=== PATIENT | male | born 1960 | race Caucasian/White ===

== ENCOUNTER 2018-09-14 09:25 | Inpatient (IN) ==
--- NOTE | 2018-08-22 09:59 | Anesthesiology Consultation ---
Date of Service August 22, 2018 Assessment & Plan (1) Encounter for pre-operative examination: Plan: Patient currently at [facility]. Limited information available per surgeon/RN interview. Discussed with [facility] Lloyd RN-- limited information; due not have height listed for patient (but also, do not note history of obesity or morbid obesity). Will need to review height, PMHX, PSHX AM DOS. Also, ASA/plavix indictions per [facility] Lloyd 2/2 carotid artery stenosis. Will need to review above details/clinical status AM DOS to determine if acceptable for surgery. Chart Review Chart Review: Acceptable Risk for Surgery and Patient NOT seen in Pre Admission Testing Consults Requested none ASA ASA4 Proposed Anesthesia Anesthesia Type: General Anesthesia Line Insertion: Arterial line Risk / Benefits Reviewed With: PT / POA / Parent / Guardian, Accepts Plan and Informed Consent Obtained NPO Date Last Intake of Fluids: 09/14/18 Time Last Intake of Fluids: 07:30 Date Last Intake of Solids: 09/13/18 Time Last Intake of Solids: 17:00 History Surgery Operation Date: 09/14/18 10:50 Proposed Procedures p Left Carotid Endarterectomy - David Mcleod MD Height/Weight Height: 5 ft 7 in Weight: 82.554 kg Allergies Allergy/AdvReac Type Severity Reaction Status Date / Time No Known Allergies Allergy Verified 09/14/18 09:46 Medications Home Medications Medication Instructions Recorded Confirmed Last Taken amlodipine 10 mg PO DAILY 08/22/18 09/14/18 09/14/18 07:15 aspirin 81 mg PO DAILY 08/22/18 09/14/18 09/13/18 08:00 atorvastatin 80 mg PO DAILY 08/22/18 09/14/18 09/13/18 08:00 clopidogrel [Plavix] 75 mg PO DAILY 08/22/18 09/14/18 09/10/18 08:00 lisinopril 5 mg PO DAILY 08/22/18 09/14/18 09/14/18 07:15 paroxetine HCl 40 mg PO DAILY 08/22/18 09/14/18 09/13/18 08:00 Past Medical History Medical History CVA (cerebral vascular accident) (Acute) Carotid artery stenosis Chronic obstructive pulmonary disease Dysthymic disorder Hyperlipidemia Hypertension Occlusion and stenosis of left carotid artery Past Surgical History Surgical History History of subluxation of joint TMJ Past Anesthesia History No Hx of Anesthesia Complications and No Family Hx of Anesthesia Complications History of PONV No Motion Sickness Screening History of Motion Sickness: No Social History Smoking Status: Current every day smoker Smoking cigarettes per day: 1 ppd x 45 yrs Do You Dip or Chew Tobacco: No Exercise / Class Metabolic Activity III < 4 Walking/Shop/Light housework Physical Exam Vital Signs Last Vital Signs Temp 37.1 C 09/14/18 09:49 Pulse 58 L 09/14/18 09:49 Resp 18 09/14/18 09:49 BP 116/73 09/14/18 09:49 Pulse Ox 96 09/14/18 09:49 Constitutional + cachectic ENMT Mouth: + edentulous Thyromental Distance: > or= 3.5 Finger Breadths Mallampati Class: II Neck normal visual inspection and trachea midline; neck extension not limited Respiratory normal respiratory effort and + uses accessory muscles Auscultation: + diminished lung sounds and + rhonchi Cardiovascular Rate/Rhythm: regular rate and regular rhythm Heart Sounds: no murmur Vessels: no carotid bruit Musculoskeletal Spine: normal cervical ROM Neurologic moves all extremities Motor/Sensory: no sensory deficit Psychiatric Orientation: alert and oriented x 3 Testing Electrocardiogram Date: 01/21/18 Findings: + SB @ (59) Chest X-Ray Date: 01/25/18 Findings: + NAD Old right rib fractures Stress Test Date: 08/18/18 Type: exercise Normal exercise ECHO without evidence of inducible ischemia at 91% mPHR. 7.00 METS. EF 60-65%. No significant valvular disease. Laboratory Results 08/04/18 WBC 11.45 (surgeon aware) H/H 14.7/43.1 PLATELETS 327 SODIUM 143 POTASSIUM 4.3 CHLORIDE 101 CO2 31 BUN 11 CREATININE 0.76 GLUCOSE 124
--- NOTE | 2018-09-14 06:25 | History & Physical Report ---
Date of Service September 14, 2018 Assessment & Plan (1) Stenosis of left internal carotid artery: Patient admitted for a left cea. I have discussed the risks options and benefits of the procedure with the patient. The patient understands the risks options and benefits and agrees to the procedure. History of Present Illness Chief Complaint: Left internal carotid artery stenosis Primary Care Provider: Casey Howe Mr. Garrett Chan is a very pleasant 57-year-old male, who is currently incarcerated at [facility], who in November of lastyear suffered from a cerebellar stroke. The patient states he awoke from sleep with dizziness and nausea, he was unable to stand and passed on the floor. When he finally came to, he had significant issues with his equilibrium as well as word finding abilities. 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 He was sent to our clinic today for evaluation of his high-grade left internal carotid artery stenosis. On discussion with the patient, he states that his symptoms have almost totally resolved with regard to his stroke. He denies any repeat stroke-like symptoms. On review of his CTA performed back in November of this year, he has approximately 90% left internal carotid artery stenosis as well as approximately 50% stenosis of his right carotid artery. The patient does note occasional episodes of blurry vision when his blood pressure is high. Allergies Allergy/AdvReac Type Severity Reaction Status Date / Time No Known Allergies Allergy Verified 08/22/18 08:41 Home Medications Home Medications Medication Instructions Recorded Confirmed Type amlodipine 10 mg PO DAILY 08/22/18 08/22/18 History aspirin 81 mg PO DAILY 08/22/18 08/22/18 History atorvastatin 80 mg PO DAILY 08/22/18 08/22/18 History clopidogrel [Plavix] 75 mg PO DAILY 08/22/18 08/22/18 History lisinopril 5 mg PO DAILY 08/22/18 08/22/18 History paroxetine HCl 40 mg PO DAILY 08/22/18 08/22/18 History Past Med/Surg History Medical History Carotid artery stenosis Chronic obstructive pulmonary disease Dysthymic disorder Hyperlipidemia Hypertension Occlusion and stenosis of left carotid artery Surgical History History of subluxation of joint TMJ Social History Current Living Situation Comment: [facility] Smoking Status: Unknown if ever smoked Review of Systems All systems reviewed & are unremarkable except as noted in HPI & below Physical Exam Physical Exam: In general, the patient is a well-developed and well-nourished male, in no acute distress, sitting comfortably on examination table. Head is normocephalic and atraumatic. Mucous membranes are moist. Neck is supple and trachea is midline. Pupils are equal and round. No carotid bruit is appreciated on auscultation bilaterally. Heart rate is regular with a regular rhythm. Lungs are clear to auscultation bilaterally. Abdomen is soft, nontender, nondistended. Radial and femoral pulses are 2+ bilaterally. There is spontaneous movement of all 4 extremities. Gross motor and sensation are intact. The patient is alert and oriented x3.
[~2018-09-14 09:25] MED LIST: CEFAZOLIN 2000MG 2,000 MG/15 ML SYR IV SCH; LACTATED RINGER'S 1,000 ML IV SCH
[2018-09-14] MEDS ORDERED: GLYCOPYRROLATE 0.2 MG/ML VIAL ONE (10:07)
[2018-09-14] MEDS ORDERED: ONDANSETRON INJ 2 MG/ML 2 ML VIAL ONE (10:07)
[2018-09-14] MEDS ORDERED: LIDOCAINE HCL 2% 2 ML VIAL/AMP(20MG/ML) INFIL ONE ×2 (10:07→15:17)
[2018-09-14] MEDS ORDERED: PROPOFOL IV EMULSION 10 MG/ML 20 ML VIAL IV ONE ×2 (10:07→15:06)
[2018-09-14] MEDS ORDERED: fentaNYL citrate 100 MCG/2 ML VIAL ONE ×2 (10:07→14:57)
[2018-09-14] MEDS ORDERED: MIDAZOLAM HCL 1 MG/ML 2ML VIAL ONE (10:07)
[2018-09-14] MEDS ORDERED: NEOSTIGMINE METHYLSULFATE 5 MG/5 ML SYR ONE (10:07)
[2018-09-14] MEDS ORDERED: DEXAMETHASONE SOD INJ 4 MG/ML VIAL ONE (10:07)
[2018-09-14] MEDS ORDERED: HEPARIN SOD (PORCINE) 1000 UNIT/ML 10 ML VIAL ONE (11:01)
[2018-09-14] MEDS ORDERED: LABETALOL HCL IV 5 MG/ML 20ML IV ONE ×2 (11:01→13:00)
[2018-09-14] MEDS ORDERED: HEPARIN (PORCINE) 1000 UNIT/ML 10 ML (CATH LAB USE ONLY) ONE (11:53)
[2018-09-14] MEDS ORDERED: THROMBIN FOR SOLN 20000 UNIT KIT ONE (11:53)
[2018-09-14] MEDS ORDERED: LIDOCAINE HCL 1% 20 ML VIAL ONE (11:53)
[2018-09-14] MEDS ORDERED: CEFAZOLIN 250 MG/ML 1 GM VIAL ONE (11:53)
[2018-09-14] MEDS ORDERED: GELATIN SPONGE SZ 100 ONE (11:53)
[2018-09-14] MEDS ORDERED: BUPIVACAINE/EPINEPHRINE 0.5% MPF 1:200,000 30 ML VIAL ONE (11:53)
--- NOTE | 2018-09-14 12:12 | History & Physical Bridge Note ---
Date of Service September 14, 2018 History & Physical Bridge Note I have examined the patient, reviewed the History & Physical and in the interval since the performance of the History & Physical I have noted the following changes of clinical significance: no changes noted
[2018-09-14] MEDS ORDERED: ROCURONIUM BROMIDE 10 MG/ML 5 ML VIAL ONE (13:00)
[2018-09-14] MEDS ORDERED: PHENYLEPHRINE HCL 10 MG/ML VIAL ONE (13:01)
[2018-09-14] MEDS ORDERED: ePHEDrine sulfate 50 MG/ML SYR ONE (13:01)
--- NOTE | 2018-09-14 14:39 | Post Operative Brief Note ---
Immediate Post Op Note v1 Date of Surgery September 14, 2018 Pre & Post Diagnosis Operation Date: 09/14/18 10:50 Pre-Op Diagnosis: Left Internal Carotid Artery Stenosis Post-Op Diagnosis: Left Internal Carotid Artery Stenosis Procedure Operation Date: 09/14/18 10:50 Actual Procedures p Left Carotid Endarterectomy with patch(Left) - David Mcleod MD Surgeon David Mcleod MD Normalizer MD Jas Mccracken MD Estimated Blood Loss 50 Findings Consistent with Post-Op Diagnosis Anesthesia Type General Complications none Disposition Accompanied Patient To Recovery: No Disposition: Recovery Room
[2018-09-14] MEDS ORDERED: MoRPHine SULFATE 4 MG/ML 1 ML CARP\\VIAL IV PRN (14:40)
[2018-09-14] MEDS ORDERED: OXYCODONE/ACETAMINOPHEN 5mg/325mg TAB PO PRN (14:40)
--- NOTE | 2018-09-14 15:10 | Operative Report ---
Post Operative Report Pre & Post Diagnosis Operation Date: 09/14/18 10:50 Pre-Op Diagnosis: Left Internal Carotid Artery Stenosis Post-Op Diagnosis: Left Internal Carotid Artery Stenosis Procedure Operation Date: 09/14/18 10:50 Actual Procedures p Left Carotid Endarterectomy(Left) - David Mcleod MD Surgeon Dr. Harsha Campo MD [employer] Instructor MD Jas Mccracken MD Estimated Blood Loss 50 Findings Consistent with Post-Op Diagnosis Specimens Left carotid artery plaque Anesthesia Type General Complications none Disposition Accompanied Patient To Recovery: Yes Disposition: Recovery Room Indications Severe left carotid artery stenosis Description of Procedure The patient was brought to the operating room, where an arterial line was placed and general anesthesia was secured. The patient was identified and a timeout performed. The left neck was prepped and sterilely draped. An oblique incision was made along the anterior border of the right sternocleidomastoid muscle. The platysma was divided and dissection was carried down to the carotid sheath. The facial vein was doubly ligated and divided exposing the carotid bifurcation. There was a small amount of bleeding from the medial branch of the facial that was suture ligated with 3-0 silk suture. The vagus nerve and XII nerve were identified and kept free from dissection and retraction. The internal, external, and common carotid arteries were dissected free proximally and distally. The hypoglossal nerve was identified. The ansa cervicalis was identified dissected and ligated to allow for medial rotation of the hypoglossal nerve without any tension. A total of 7000 U of Heparin was given intravenously. The external carotid as well as superior thyroid vessels were encircled with vessel loops a nd add to silk tie. Once the heparin was allowed to circulate for approximately 5 minutes, clamps were placed starting with the internal carotid and common carotid and external carotid. An anterior arteriotomy was made on the common carotid artery using an 11 blade. Juarez scissors was used to extend the arteriotomy through the plaque on to the distal soft internal carotid artery. The plaque was heavily calcified, ulcerated, and nearly occlusive. The common carotid artery had significant disease and the webbing in the movement of it and the arteriotomy was extended distally to include a good portion of the common carotid until a segment free of plaque was noted at the proximal end of the common carotid. A shunt was then inserted into the into the internal carotid artery and revealed good backbleeding. The proximal end of the shunt was then inserted into the common carotid artery and secured in place. The Doppler attached to the shunt was turned on and revealed good flow through the shunt. We had some difficulty securing the shunt in place however we were able to successfully place it proceed with the case. A Pickford elevator was used to create an endarterectomy plane. The proximal endpoint was created using Juarez scissors as well as a distal endpoint was created with the Juarez scissors. The plaque was freed out of the external carotid artery.With downward retraction on the plaque, a smooth distal endpoint was created. All debris was meticulously debrided from the inside of the lumen and confirmed with instillation of heparinized saline. Once endarterectomy was completed, an Aquacel patch was then cut to the appropriate size and sewn into internal carotid artery using a PTFE 6-0 sutures starting at the internal carotid artery corner of the arteriotomy. Before the patch was completed, the shunt was pulled and all the arteries were backbleed extruding any air and debris. The patch was then completed. The external carotid and superior thyroid loops was removed first, followed by the common carotid artery clamp, and finally the internal carotid artery clamp, restoring blood flow to the brain. Patient did have some oozing and multiple 6-0 Prolene sutures were used to achieve hemostasis as well as thrombin soaked gel foam. Meticulous hemostasis was secured. The wound was then closed in multiple layers using 3-0 Vicryl suture then a 4-0 Vicryl subcutaneous layer closing the skin. Dermabond was applied over the incision. The patient tolerated the procedure well and was extubated on table. The patient was moving all four extremities and his tongue was midline to command prior to and upon transfer to the recovery room. Dr. Mcleod was scrubbed and present for the entirety of the case. I attest to the content of the Intraoperative Record and any orders documented therein. Any exceptions are noted below.
[2018-09-14] MEDS ORDERED: fentaNYL citrate 100 MCG/2 ML VIAL IV PRN (16:06)
[2018-09-14] MEDS ORDERED: ATROPINE SULFATE 0.1 MG/ML 10ML SYR IV PRN (16:06)
[2018-09-14] MEDS ORDERED: FLUMAZENIL 0.1 MG/1 ML 10 ML VIAL IV PRN (16:06)
[2018-09-14] MEDS ORDERED: NALOXONE HCL 0.4 MG/1 ML VIAL/CARP IV PRN (16:06)
[2018-09-14] MEDS ORDERED: ePHEDrine sulfate 50 MG/ML AMP IV PRN (16:06)
[2018-09-14] MEDS ORDERED: LABETALOL HCL IV 5 MG/ML 20ML IV PRN (16:06)
[2018-09-14] MEDS ORDERED: ONDANSETRON INJ 2 MG/ML 2 ML VIAL IV PRN (16:06)
[2018-09-14] MEDS ORDERED: PROMETHAZINE HCL 12.5 MG in SODIUM CHLORIDE 0.9% 50 ML IV PRN (16:06)
--- NOTE | 2018-09-14 16:38 | Anesthesiology Progress Note ---
Date of Service September 14, 2018 Anesthesia Post Procedure Vital Signs Vital Signs: Temp Pulse Pulse Resp BP BP BP 09/14/18 16:30 59 L 14 115/48 L 101/57 L 09/14/18 16:20 36.6 C 61 14 105/45 L 95/55 L 09/14/18 16:10 50 L 14 112/48 L 96/57 L 09/14/18 16:00 60 16 101/45 L 88/53 L 09/14/18 15:50 61 16 104/47 L 95/57 L 09/14/18 15:40 48 L 16 105/49 L 95/54 L 09/14/18 15:32 36.2 C L 60 16 114/55 L 91/64 L 09/14/18 09:49 37.1 C 58 L 18 125/74 116/73 Pulse Ox 09/14/18 16:30 96 09/14/18 16:20 96 09/14/18 16:10 94 09/14/18 16:00 96 09/14/18 15:50 98 09/14/18 15:40 98 09/14/18 15:32 98 09/14/18 09:49 96 Notes Mental Status: alert / awake / arousable Patient Amnestic to Procedure: Yes Nausea / Vomiting: adequately controlled Pain: adequately controlled Airway Patency, RR, SpO2: stable & adequate BP & HR: stable & adequate Hydration State: stable & adequate Anesthetic Complications: no major complications apparent
[2018-09-14] MEDS: OXYCODONE/ACETAMINOPHEN 5mg/325mg TAB PO PRN ×2 (17:36→21:25)
[2018-09-14] MEDS: D5W AND 1/2NSS 1,000 ML IV SCH (17:54)
--- NOTE | 2018-09-14 18:11 | Critical Care Consultation ---
Date of Consultation September 14, 2018 Assessment & Plan (1) Stenosis of left internal carotid artery: Reason Critically Ill: 57-year-old male with history of left internal carotid stenosis, now status post left carotid endarterectomy. Neuro CAM ICU: Negative Cardiac Carotid stenosisstatus post endarterectomy -Continue aspirin Lipitor Plavix -Arterial line for strict blood pressure control, SBP less than 160 -Continue amlodipine, lisinopril Respiratory COPDno recorded home meds -Currently on 4 L nasal cannula, wean as tolerated -Monitor for need for nebs RENAL/LYTES Monitor routine BMPs No Palma, monitor for urine output ENDO Follow ICU insulin protocol HEME H&H stable, monitor routine CBCs ID Postoperative cefazolin x2 doses LINES/IV ACCESS Peripheral IV, a line DVT PROPHYLAXIS SCDs, anticoagulation contraindicated for now Supervising Physician Co-Signing Physician Notes I have personally evaluated and examined this patient. I agree with assessment and plan of Yao AGUILAR. Left-sided carotid endarterectomy, anticipate routine postoperative course History of Present Illness Attending Physician: David Mcleod MD History of Present Illness Mr. Chan is a 57-year-old male from [facility] with past medical history of hypertension, COPD, hyperlipidemia, CVA, left internal carotid stenosis who presents to the ICU status post day of surgery for left endarterectomy. Upon arrival to the ICU the patient is alert and oriented, and he denies pain, shortness of breath, nausea and vomiting, confusion, or changes in vision. He is currently upright in bed eating dinner. Surgical site incision is approximated with minimal swelling. Plan to remain in ICU overnight for close observation and monitoring. Allergies Allergy/AdvReac Type Severity Reaction Status Date / Time No Known Allergies Allergy Verified 09/14/18 09:46 Home Medications Home Medications Medication Instructions Recorded Confirmed Type amlodipine 10 mg PO DAILY 08/22/18 09/14/18 History aspirin 81 mg PO DAILY 08/22/18 09/14/18 History atorvastatin 80 mg PO DAILY 08/22/18 09/14/18 History clopidogrel [Plavix] 75 mg PO DAILY 08/22/18 09/14/18 History lisinopril 5 mg PO DAILY 08/22/18 09/14/18 History paroxetine HCl 40 mg PO DAILY 08/22/18 09/14/18 History Patient History Medical History CVA (cerebral vascular accident) (Acute) Carotid artery stenosis Chronic obstructive pulmonary disease Dysthymic disorder Hyperlipidemia Hypertension Occlusion and stenosis of left carotid artery Surgical History History of subluxation of joint TMJ Social History Current Living Situation Comment: [facility] Smoking Status: Current every day smoker Review of Systems Review of 12 systems negative except for HPI. See above Physical Exam Vital Signs (Past 24 Hours): Last Vital Signs Temp 36.6 C 09/14/18 16:20 Pulse 73 09/14/18 17:26 Resp 15 09/14/18 17:26 BP 101/57 L 09/14/18 16:30 Pulse Ox 94 09/14/18 17:26 Constitutional: WD/WN, vitals as above well nourished and comfortable Eyes: PERRLA, no visual changes Neck: Surgical incision to left anterior neck with minimal swelling, no drainage, incision approximated. Trachea midline Respiratory: Respirations unlabored on 4 L nasal cannula, lungs clear to auscultation bilaterally in all lobes, no wheezing, symmetrical chest wall movement Cardiovascular: S1-S2 auscultated, good peripheral perfusion, pedal pulses and radial pulses +2 bilaterally Gastrointestinal (Abdomen): Abdomen soft flat and nontender, bowel sounds auscultated in all 4 quadrants Skin: Skin intact Neurologic: Alert and oriented, symmetrical movements, no facial droop, no visual changes, no changes in mentation Psychiatric: Orientation: oriented x 3 and cooperative Results & Data Medications Administered Home Medications amlodipine 10 mg PO DAILY 08/22/18 [History Confirmed 09/14/18] aspirin 81 mg PO DAILY 08/22/18 [History Confirmed 09/14/18] atorvastatin 80 mg PO DAILY 08/22/18 [History Confirmed 09/14/18] clopidogrel [Plavix] 75 mg PO DAILY 08/22/18 [History Confirmed 09/14/18] lisinopril 5 mg PO DAILY 08/22/18 [History Confirmed 09/14/18] paroxetine HCl 40 mg PO DAILY 08/22/18 [History Confirmed 09/14/18] Active Medications Amlodipine Besylate (Norvasc) 10 mg PO DAILY [facility]AIL[facility] Stop: 10/15/18 08:59 Aspirin (Ecotrin Ectab) 81 mg PO DAILY [facility] Stop: 10/15/18 08:59 Atorvastatin Calcium (Lipitor) 80 mg PO DAILY [facility] Stop: 10/15/18 08:59 Clopidogrel Bisulfate (Plavix) 75 mg PO DAILY [facility] Stop: 10/15/18 08:59 Cefazolin Sodium (Ancef 1000mg) 1,000 mg in 7.5 mls @ 2.5 mls/min IV Q8H [facility]; Protocol Stop: 09/15/18 07:02 Dextrose/Sodium Chloride (D5w And 1/2nss) 1,000 mls @ 125 mls/hr IV .Q8H [facility] Stop: 10/14/18 16:59 Last Admin: 09/14/18 17:54 Dose: 125 mls/hr Documented by: Lisinopril (Zestril) 5 mg PO DAILY [facility] Stop: 10/15/18 08:59 Morphine Sulfate (Morphine Sulfate) 1 - 4 mg IV Q2H PRN PRN Reason: Severe Pain Stop: 09/28/18 14:39 Oxycodone/Acetaminophen (Percocet 5mg/325mg) 1 - 2 tab PO Q4H PRN PRN Reason: Moderate Pain Stop: 09/28/18 14:52 Last Admin: 09/14/18 17:36 Dose: 2 tab Documented by: Paroxetine HCl (Paxil) 40 mg PO DAILY [facility] Stop: 10/15/18 08:59
[2018-09-14] MEDS ORDERED: PNEUMOCOCCAL ADMINISTRATION CHARGE ONE (21:15)
[2018-09-14] MEDS ORDERED: PNEUMOCOCCAL POLYSACCHARIDES 25 MCG/0.5 ML VIAL/SYR IM ONE (21:15)
[2018-09-14] MEDS: CEFAZOLIN 1000MG 1,000 MG/7.5 ML SYR IV SCH (22:38)
[2018-09-15] MEDS: D5W AND 1/2NSS 1,000 ML IV SCH ×2 (02:30→13:16)
[2018-09-15 04:52] LABS: Basophils # (auto) 0.01 K/uL (0-0.2); Basophils % (auto) 0.1 %; Hemoglobin 11.2 g/dL (14.0-18.0); Immature Granulocytes # (auto) 0.04 K/uL (0.00-0.02); Immature Granulocytes % (auto) 0.3 %; Lymphocytes # (auto) 1.48 K/uL (1.2-3.4); Lymphocytes % (auto) 9.8 %; Mean Corpuscular Hgb Conc 33.9 g/dL (32-36); Mean Corpuscular Volume 95.4 fL (80-100); Mean Platelet Volume 9.6 fL (7.4-10.4); Monocytes # (auto) 0.73 K/uL (0.11-0.59); Monocytes % (auto) 4.8 %; Neutrophils # (auto) 12.87 K/uL (1.4-6.5); Platelet Count 225 K/uL (130-400); RDW Coefficient of Variation 13.5 % (11.5-14.5); Red Blood Count 3.46 M/uL (4.7-6.1); White Blood Count 15.13 K/uL (4.8-10.8)
[2018-09-15 05:10] LABS: Calcium 7.6 mg/dl (8.5-10.1); Creatinine Clr Calc Pharmacy 101.7 ml/min; Est GFR (African American) 117.8; Est GFR (Non-African American) 101.7; Phosphorus 3.3 mg/dl (2.5-4.9); Potassium 3.9 mmol/L (3.5-5.1)
[2018-09-15] MEDS: CEFAZOLIN 1000MG 1,000 MG/7.5 ML SYR IV SCH (06:16)
--- NOTE | 2018-09-15 07:50 | Surgery Progress Note ---
Date of Service September 15, 2018 Assessment & Plan (1) Stenosis of left internal carotid artery: This patient is postoperative day 1 from a left carotid endarterectomy. We will transfer him to the floor and observe him for 1 more day due to his throat soreness and headache. Subjective Patient is complaining of some soreness when swallowing. He denies inability to swallow. He denies any neurological focal deficits. He is also complaining of a left-sided headache. Physical Exam Vital Signs (Past 24 Hours): Last Vital Signs Temp 36.7 C 09/15/18 04:00 Pulse 60 09/15/18 05:00 Resp 20 09/15/18 05:00 BP 96/52 L 09/15/18 05:00 Pulse Ox 93 09/15/18 05:00 Patient is awake and alert. He has no neurological focal deficits. Minimal swelling is noted in the incision site. Incision site is dry and clean.
--- NOTE | 2018-09-15 08:01 | Critical Care Progress Note ---
Date of Service September 15, 2018 Assessment & Plan (1) Headache: Continued observation (2) Post-operative state: Supervising Physician Co-Signing Physician Notes Patient was discussed in multidisciplinary rounds Patient was discussed with Dr. Mcleod Patient stable for downgrade out of ICU Discontinue arterial line Subjective Mild headache today, no visual changes. Mild dysphagia with breakfast more pain with coughing in the lower neck. Feels improved compared to yesterday. Required straight catheterization for acute postoperative urinary retention this morning. Physical Exam Vital Signs (Past 24 Hours): Last Vital Signs Temp 36.7 C 09/15/18 04:00 Pulse 60 09/15/18 05:00 Resp 20 09/15/18 05:00 BP 96/52 L 09/15/18 05:00 Pulse Ox 93 09/15/18 05:00 General: Alert. nontoxic. Skin: Warm, dry, Head: Atraumatic Ears, nose, mouth and throat: airway patent, no obvious hematoma, no tracheal deviation, oral cavity appears to be normal Cardiovascular: Normal peripheral perfusion Respiratory: no respiratory distress Gastrointestinal: Non distended Musculoskeletal: No deformity Results & Data Laboratory Results 09/15/18 09/15/18 09/14/18 Range/Units 04:15 04:15 17:52 WBC 15.13 H (4.8-10.8) K/uL RBC 3.46 L (4.7-6.1) M/uL Hgb 11.2 L (14.0-18.0) g/dL Hct 33.0 L (42-52) % MCV 95.4 (80-100) fL MCH 32.4 (25-34) pg MCHC 33.9 (32-36) g/dL RDW Std Deviation 47.0 H (36.4-46.3) fL RDW Coeff of Liam 13.5 (11.5-14.5) % Plt Count 225 (130-400) K/uL MPV 9.6 (7.4-10.4) fL Immature Gran % (Auto) 0.3 % Neut % (Auto) 85.0 % Lymph % (Auto) 9.8 % Turner % (Auto) 4.8 % Eos % (Auto) 0.0 % Baso % (Auto) 0.1 % Immature Gran # (Auto) 0.04 H (0.00-0.02) K/uL Neut # (Auto) 12.87 H (1.4-6.5) K/uL Lymph # (Auto) 1.48 (1.2-3.4) K/uL Turner # (Auto) 0.73 H (0.11-0.59) K/uL Eos # (Auto) 0.00 (0-0.5) K/uL Baso # (Auto) 0.01 (0-0.2) K/uL Sodium 134 L (136-145) mmol/L Potassium 3.9 (3.5-5.1) mmol/L Chloride 102 (98-107) mmol/L Carbon Dioxide 27 (21-32) mmol/L Anion Gap 5.0 (3-11) BUN 13 (7-18) mg/dl Creatinine 0.74 (0.6-1.4) mg/dl Est Cr Clr Drug Dosing 101.7 ml/min Est GFR ( Amer) 117.8 Est GFR (Non-Af Amer) 101.7 BUN/Creatinine Ratio 17.0 (10-20) Glucose 233 H (70-99) mg/dl POC Glucose 173 H (70-99) Calcium 7.6 L (8.5-10.1) mg/dl Phosphorus 3.3 (2.5-4.9) mg/dl Magnesium 2.0 (1.8-2.4) mg/dl Nasal Screen MRSA (PCR) (Negative) Blood Type Antibody Screen Crossmatch 09/14/18 09/14/18 Range/Units 16:55 09:56 WBC (4.8-10.8) K/uL RBC (4.7-6.1) M/uL Hgb (14.0-18.0) g/dL Hct (42-52) % MCV (80-100) fL MCH (25-34) pg MCHC (32-36) g/dL RDW Std Deviation (36.4-46.3) fL RDW Coeff of Liam (11.5-14.5) % Plt Count (130-400) K/uL MPV (7.4-10.4) fL Immature Gran % (Auto) % Neut % (Auto) % Lymph % (Auto) % Turner % (Auto) % Eos % (Auto) % Baso % (Auto) % Immature Gran # (Auto) (0.00-0.02) K/uL Neut # (Auto) (1.4-6.5) K/uL Lymph # (Auto) (1.2-3.4) K/uL Turner # (Auto) (0.11-0.59) K/uL Eos # (Auto) (0-0.5) K/uL Baso # (Auto) (0-0.2) K/uL Sodium (136-145) mmol/L Potassium (3.5-5.1) mmol/L Chloride (98-107) mmol/L Carbon Dioxide (21-32) mmol/L Anion Gap (3-11) BUN (7-18) mg/dl Creatinine (0.6-1.4) mg/dl Est Cr Clr Drug Dosing ml/min Est GFR ( Amer) Est GFR (Non-Af Amer) BUN/Creatinine Ratio (10-20) Glucose (70-99) mg/dl POC Glucose (70-99) Calcium (8.5-10.1) mg/dl Phosphorus (2.5-4.9) mg/dl Magnesium (1.8-2.4) mg/dl Nasal Screen MRSA (PCR) Negative (Negative) Blood Type O Positive Antibody Screen NEGATIVE Crossmatch See Detail (1) Headache Headache type: other headache syndrome Qualified Code(s): G44.89 - Other headache syndrome
[2018-09-15] MEDS: PARoxetine HCl 20 MG TAB PO SCH (08:53)
[2018-09-15] MEDS: ASPIRIN 81 MG ECTAB PO SCH (08:53)
[2018-09-15] MEDS: AMLODIPINE BESYLATE 5 MG TAB PO SCH (08:54)
[2018-09-15] MEDS: LISINOPRIL 5 MG TAB PO SCH (08:54)
[2018-09-15] MEDS: CLOPIDOGREL BISULFATE 75 MG TAB PO SCH (08:55)
[2018-09-15] MEDS: ATORVASTATIN 40 MG TAB PO SCH (08:55)
[2018-09-15] MEDS: OXYCODONE/ACETAMINOPHEN 5mg/325mg TAB PO PRN ×3 (10:19→21:39)
--- NOTE | 2018-09-15 11:32 | Anesthesiology Progress Note ---
Date of Service September 15, 2018 Anesthesia Post Procedure Vital Signs Vital Signs: Temp Pulse Pulse Resp BP BP BP 09/15/18 09:29 36.7 C 72 18 98/57 L 09/15/18 09:00 36.6 C 76 18 101/68 09/15/18 08:00 36.6 C 71 83 18 104/76 104/76 09/15/18 05:00 60 20 104/38 L 96/52 L 09/15/18 04:00 36.7 C 61 18 104/42 L 97/53 L 09/15/18 02:00 60 18 101/46 L 110/66 09/15/18 01:00 57 L 20 97/39 L 95/56 L 09/15/18 00:07 36.7 C 63 16 98/39 L 90/52 L 09/14/18 23:30 59 L 16 96/41 L 09/14/18 22:40 65 20 90/38 L 92/53 L 09/14/18 22:00 58 L 20 93/42 L 86/59 L 09/14/18 21:10 52 L 20 100/46 L 99/58 L 09/14/18 20:00 36.6 C 55 L 16 90/43 L 83/54 L 09/14/18 19:35 65 100/53 L 84/57 L 09/14/18 19:00 58 L 20 103/55 L 09/14/18 18:00 36.6 C 72 18 102/54 L 09/14/18 17:40 71 18 09/14/18 17:26 73 15 09/14/18 17:00 36.6 C 80 18 103/46 L 09/14/18 16:40 36.6 C 79 18 106/45 L 09/14/18 16:30 59 L 14 115/48 L 101/57 L 09/14/18 16:20 36.6 C 61 14 105/45 L 95/55 L 09/14/18 16:10 50 L 14 112/48 L 96/57 L 09/14/18 16:00 60 16 101/45 L 88/53 L 09/14/18 15:50 61 16 104/47 L 95/57 L 09/14/18 15:40 48 L 16 105/49 L 95/54 L 09/14/18 15:32 36.2 C L 60 16 114/55 L 91/64 L Pulse Ox 09/15/18 09:29 91 09/15/18 09:00 93 09/15/18 08:00 4 L 09/15/18 05:00 93 09/15/18 04:00 93 09/15/18 02:00 93 09/15/18 01:00 93 09/15/18 00:07 94 09/14/18 23:30 93 09/14/18 22:40 92 09/14/18 22:00 93 09/14/18 21:10 100 09/14/18 20:00 93 09/14/18 19:35 09/14/18 19:00 95 09/14/18 18:00 4 L 09/14/18 17:40 94 09/14/18 17:26 94 09/14/18 17:00 95 09/14/18 16:40 4 L 09/14/18 16:30 96 09/14/18 16:20 96 09/14/18 16:10 94 09/14/18 16:00 96 09/14/18 15:50 98 09/14/18 15:40 98 09/14/18 15:32 98 Pain Intensity Left Neck: Pain Intensity: 3 Notes Mental Status: alert / awake / arousable and participated in evaluation Patient Amnestic to Procedure: Yes Nausea / Vomiting: adequately controlled Pain: adequately controlled Airway Patency, RR, SpO2: stable & adequate BP & HR: stable & adequate Hydration State: stable & adequate Anesthetic Complications: no major complications apparent and Pt Satisfied with anesthetic care
[2018-09-16] MEDS: OXYCODONE/ACETAMINOPHEN 5mg/325mg TAB PO PRN ×3 (04:09→13:17)
[2018-09-16] MEDS: LISINOPRIL 5 MG TAB PO SCH (07:34)
[2018-09-16] MEDS: PARoxetine HCl 20 MG TAB PO SCH (07:34)
[2018-09-16] MEDS: ASPIRIN 81 MG ECTAB PO SCH (07:34)
[2018-09-16] MEDS: CLOPIDOGREL BISULFATE 75 MG TAB PO SCH (07:35)
[2018-09-16] MEDS: AMLODIPINE BESYLATE 5 MG TAB PO SCH (07:35)
[2018-09-16] MEDS: ATORVASTATIN 40 MG TAB PO SCH (07:35)
--- NOTE | 2018-09-16 10:14 | Surgery Progress Note ---
Date of Service September 16, 2018 Assessment & Plan (1) Stenosis of left internal carotid artery: POD #2 after L CEA. Overall doing well postop. L sided huertas likely d/t jaw discomfort and L neck pain. D/C today. Will see in office in 2 weeks. Subjective 57 yo m POD #2 after L CEA, seen in f/u today. Pt states overall feeling improved. Admits L neck pain and L sided jaw pain and headache. Denies amaurosis, extermity weakness, facial droop, difficulty speaking or swallowing. Per pt, he states has had BL TMJ surgery in past and has some pain over his jaw. Physical Exam Vital Signs (Past 24 Hours): Last Vital Signs Temp 36.9 C 09/16/18 07:26 Pulse 66 09/16/18 07:26 Resp 19 09/16/18 07:26 BP 99/62 L 09/16/18 07:26 Pulse Ox 93 09/16/18 07:26 Constitutional: WD/WN, vitals as above Neck: trachea midline L neck incision C/D/I with dermabond. + local tenderness and mild edema. Tenderness extends to L TMJ, no swelling. Respiratory: normal respiratory effort, lungs clear to auscultation Cardiovascular: RRR, no murmur, no edema Gastrointestinal (Abdomen): normal bowel sounds, soft, nontender, no hepatosplenomegaly Musculoskeletal: no cyanosis or clubbing, extremities motor strength 5/5 Neurologic: moves all extremities; no focal motor deficits Speech / Cognition: normal speech Pt L lower lip drag noted, consistent with marginal mandibular nerve dysfunction. tongue midline, no facial droop.
--- NOTE | 2018-09-16 10:29 | Discharge Summary ---
Date of Service September 16, 2018 Admission HPI Per Admitting Provider Mr. Garrett Chan is a very pleasant 57-year-old male, who is currently incarcerated at [facility], who in November of last year suffered from a cerebellar stroke. The patient states he awoke from sleep with dizziness and nausea, he was unable to stand and passed on the floor. When he finally came to, he had significant issues with his equilibrium as well as word finding abilities. 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 He was sent to our clinic today for evaluation of his high-grade left internal carotid artery stenosis. On discussion with the patient, he states that his symptoms have almost totally resolved with regard to his stroke. He denies any repeat stroke-like symptoms. On review of his CTA performed back in November of this year, he has approximately 90% left internal carotid artery stenosis as well as approximately 50% stenosis of his right carotid artery. The patient does note occasional episodes of blurry vision when his blood pressure is high. Pt was recommended to undergo L CEA. He was agreeable. Admission Exam Per Admitting Provider In general, the patient is a well-developed and well-nourished male, in no acute distress, sitting comfortably on examination table. Head is normocephalic and atraumatic. Mucous membranes are moist. Neck is supple and trachea is midline. Pupils are equal and round. No carotid bruit is appreciated on auscultation bilaterally. Heart rate is regular with a regular rhythm. Lungs are clear to auscultation bilaterally. Abdomen is soft, nontender, nondistended. Radial and femoral pulses are 2+ bilaterally. There is spontaneous movement of all 4 extremities. Gross motor and sensation are intact. The patient is alert and oriented x3. Principal Diagnosis 1. s/p L CEA 2. L ICA stenosis Discharge Exam Constitutional WD/WN, vitals as above Neck trachea midline Respiratory normal respiratory effort, lungs clear to auscultation Cardiovascular RRR, no murmur, no edema Gastrointestinal (Abdomen) normal bowel sounds, soft, nontender, no hepatosplenomegaly Musculoskeletal no cyanosis or clubbing, extremities motor strength 5/5 Neurologic moves all extremities; no focal motor deficits Speech / Cognition: normal speech Discharge Data Allergies Allergy/AdvReac Type Severity Reaction Status Date / Time No Known Allergies Allergy Verified 09/14/18 09:46 Consultations 09/14/18 16:01 Consult Deck Steward Routine Procedures Performed Operation Date: 09/14/18 10:50 Actual Procedures p Left Carotid Endarterectomy(Left) - David Mcleod MD Hospital Course (1) Stenosis of left internal carotid artery: POD #2 after L CEA. Overall doing well postop. L sided huertas likely d/t jaw discomfort and L neck pain. D/C today. Will see in office in 2 weeks. Total Time Total Time Spent Total Time Spent (In Minutes): 15 minutes Total Time Includes: Examination of the Patient, Medication Reconciliation and Communication With Other Providers Discharge Plan Discharge Items [facility] Disposition: [facility] Reason For Visit: Left Internal Carotid Artery Stenosis Discharge Diagnosis: 1. s/p LEFT CEA 2. Left internal carotid artery stenosis Condition: Good Discharge Goals: Prevent disease Activity: Per 'Additional Instructions' section Non-emergency contact: Primary Care Provider and Surgeon Call non-emergency contact if: your pain is worsening, your temperature is above 101, your wound has increased redness and your wound has increased drainage Follow-up/Referrals: Casey Howe [Primary Care Provider] - Diet: Heart Healthy Add Provider Instructions: SPECIAL CARE INSTRUCTIONS: Medications: * Continue to take Aspirin as directed. Incision Care: * You may shower, but do not rub incision. You may let the warm soapy water run over it. Be sure to dry the incision well after bathing. * Do not shave directly over the incision until it is healed. * DO NOT IMMERSE THE INCISION IN A TUB/POOL/etc. UNTIL HEALED. Restrictions: * Do not drive for at least one week or if you are still taking any narcotic pain medication. * Do not lift anything heavier than a gallon of milk for one week after going home. Possible Complications: * Numbness - It is normal to have some numbness around the incision. Numbness can extend beyond the incision to areas of the neck, ear and face. The numbness is due to bruising of nerves during the surgery and will gradually improve over a period of months. * Hoarseness/Difficulty Speaking and Swallowing - The bruising of nerves in the neck can also cause a hoarse voice, difficulty speaking or swallowing. This may improve over time, HOWEVER, if it continues for more than a few days please contact our office ([phone]). * Excessive Swelling - There will be some swelling immediately after surgery which usually resolves within one week. If you notice that the swelling is getting worse, notify your surgeon ([phone]). * Drainage/Bleeding - If there is any drainage or bleeding, it should be a very small amount (less than a teaspoon per day). If you have excessive bleeding or drainage from the incision, call your surgeon ([phone]) right away. ACTIVATION OF EMERGENCY MEDICAL SYSTEM: Call 911, immediately, if you experience any of the following: Warning Signs and Symptoms of Stroke: * Sudden numbness or weakness of the face, arm or leg, especially on one side of the body * Sudden confusion, trouble speaking or understanding * Sudden trouble seeing in one or both eyes * Sudden trouble walking, dizziness, loss of balance or coordination * Sudden severe headache with no cause Do not delay calling 911 if you experience any warning signs or symptoms of a stroke. Delay in seeking medical attention may affect what treatments can be given to you. Risk Factors for Stroke: You can reduce your chances of stroke by working with your medical provider to adopt a healthy lifestyle. Some specific ways to lower your chance of stroke are: * If you are a smoker, now is the time to stop smoking cigarettes * If you are diabetic, improve the control of your blood sugars * Avoid excessive amounts of alcohol * Control high blood pressure * Lose weight if you are overweight * Be sure to lead an active lifestyle * Eat a healthy diet low in salt, cholesterol and fat You should know about other risk factors for stroke that you are unable to control. These include: * Age 55 years or older * Male gender * Certain racial groups: , or / * Family History of Stroke, Mini stroke or Heart Attack * Sickle Cell Disease You will be receiving a call from the Vascular Surgery Nurse after you are discharged. FOLLOW UP VISIT: It is important for you to keep your follow up appointments with your medical provider. Keep any scheduled doctor appointments. Prescriptions: New oxycodone-acetaminophen [Percocet] 5-325 mg Tablet 1 - 2 tab PO Q4H PRN (Reason: Pain) 10 Days Qty: 30 RF: 0 Continued atorvastatin 80 mg Tablet 80 mg PO DAILY RF: 0 clopidogrel [Plavix] 75 mg Tablet 75 mg PO DAILY RF: 0 aspirin 81 mg Tablet,Delayed Release (Dr/Ec) 81 mg PO DAILY RF: 0 amlodipine 10 mg Tablet 10 mg PO DAILY RF: 0 lisinopril 5 mg Tablet 5 mg PO DAILY RF: 0 paroxetine HCl 40 mg Tablet 40 mg PO DAILY RF: 0 Stand-Alone Forms: [facility] Discharge Orders: Discharge Order (Routine); Ordered 09/16/18 Ordered By: Rubia Retana Admission Data Admit Date/Time: 09/14/18 16:00 Attending Provider: David Mcleod Admit Provider: David Mcleod Primary Care Provider: Casey Howe Other Providers: Olman Brewer ; Stef Spaulding ; Albert Miller ; Sam Lowry ; Morgan Florez ; Sariah Jordan ; Mary Garrison ; Maru Hood ; Nadya Cox ; Gretta Morgan ; Bryan Martínez ; Cole Mendoza Service: Surgical Services Other Pending Studies at Discharge: No
== END 2018-09-16 14:01 | DRG 39 ==
LOC: ASU 09:25 → 1E 16:00 → 3N 09-15 09:25